=== PATIENT | female | born 2000 | race Caucasian/White ===

== ENCOUNTER 2020-08-28 09:56 | Emergency (ER) | payer BC ==
[2020-08-28 10:03] VITALS: TEMP 98.5
[2020-08-28] MEDS ORDERED: PRENATAL TABLET PO (10:06)
[2020-08-28] MEDS ORDERED: CALCIUM CARBON650 M2 (10:07)
[2020-08-28 10:44] LABS: ALBUMIN 4.5 gm/dL (3.5-5.0); BILIRUBIN,TOTAL 0.6 mg/dL (0.0-1.0); CALCIUM 9.4 mg/dL (8.4-10.2); CREATININE, serum 0.57 (0.52-1.25); POTASSIUM 4.2 mmol/L (3.4-5.0); TOTAL PROTEIN 7.5 gm/dL (6.4-8.2)
[2020-08-28 10:51] LABS: BASO % 0.1 % (0.0-2.0); EOS # 0.1 (0.0-0.7); GRAN # 7.2 (1.4-6.5); HEMOGLOBIN 12.8 g/dl (12.5-16.0); LYMPH # 1.4 (1.2-3.4); LYMPH % 15.5 % (20.0-51.0); MEAN CELL VOLUME 85 fl (80.0-100.0); MEAN CORPUSCULAR HEMOGLOBIN 29 pg (27.0-31.0); MEAN CORPUSCULAR HGB CONC 35 g/dl (33.0-37.0); MONO # 0.5 (0.1-0.6); MONO % 5.1 % (1.7-9.3); PLATELET COUNT 255 K/mm3 (130-400); RED BLOOD COUNT 4.37 M/mm3 (4.10-5.30); REDCELL DISTRIBUTION WIDTH-CV 12.4 % (11.5-14.5)
[2020-08-28 10:59] LABS: PROLACTIN 32.7 ng/mL (3.0-18.6)
[2020-08-28 11:08] LABS: COLLECTION METHOD CLEAN CATCH
[2020-08-28 11:27] LABS: MUCOUS Present /lpf; PH 6 (5-8); URINE APPEARANCE Cloudy; URINE BACTERIA Rare /hpf; URINE BILIRUBIN Negative (NEGATIVE); URINE BLOOD 1+ (NEGATIVE); URINE COLOR Yellow; URINE GLUCOSE Negative (NEGATIVE); URINE KETONE 1+ (NEGATIVE); URINE LEUKOCYTE ESTERASE 3+ (NEGATIVE); URINE NITRATE Negative (NEGATIVE); URINE PROTEIN(semi-quant) Negative (NEGATIVE); URINE UROBILINOGEN Negative (NEGATIVE)
[2020-08-28] MEDS ORDERED: MACROBID 1100 MG/CAP PO (13:22)
[2020-08-28] MEDS ORDERED: KEPPRA 500MG500 MG PO (13:22)
[2020-08-28 13:41] VITALS: BP 104/70; PULSE 60
== END 2020-08-28 13:40 | disposition home or self-care (01) ==
LOC: COL.ER 09:56
PROVIDERS: Emergency Medicine
DX: O99.351 Diseases of the nervous system complicating pregnancy, first trimester (principal); O23.41 Unspecified infection of urinary tract in pregnancy, first trimester; R56.9 Unspecified convulsions; Z3A.11 11 weeks gestation of pregnancy
CPT/HCPCS: J7030

== ENCOUNTER 2021-02-19 17:29 | Outpatient (CLI) | payer BC ==
[~2021-02-19] VITALS: Ht 165.1 cm; Wt 98.2 kg
[~2021-02-19 17:29] MED LIST: CALCIUM CARBON650 M2; KEPPRA 500MG500 MG PO; MACROBID 1100 MG/CAP PO; PRENATAL TABLET PO
--- NOTE | 2021-02-19 17:45 | NUR ---
Pt arrives on unit ambulatory with support person. States contractions since 1100 with absent seizures during ctx that last 1-2 minutes. Pt states not feeling baby move as much. Denies vaginal bleeding and leaking of fluid. Mild headache present. Keppra 1000mg BID taken this am. EFM and toco applied. BP elevated. SVE per this RN /-3. Dr. Black notified. Orders for CBC, CMP, 24 hour CrCL urine. Admission assessment completed. Pt updated on POC. No questions or concerns at this time.
[2021-02-19 17:50] VITALS: BP 155/105; PULSE 96
[2021-02-19] MEDS ORDERED: KEPPRA1000 MG PO (17:59)
[2021-02-19 18:00] VITALS: BP 162/111; PULSE 100; TEMP 98.1
[2021-02-19 18:15] VITALS: BP 138/94; PULSE 94
--- NOTE | 2021-02-19 18:20 | NUR ---
Report to Hussein Recio RN who assumes care of patient at this time.
[2021-02-19 18:23] LABS: BASO % 0.1 % (0.0-2.0); EOS % 0.4 % (0-4.0); GRAN # 7.3 (1.4-6.5); HEMOGLOBIN 11.7 g/dl (12.5-16.0); LYMPH # 1.7 (1.2-3.4); LYMPH % 17.6 % (20.0-51.0); MEAN CELL VOLUME 88 fl (80.0-100.0); MEAN CORPUSCULAR HEMOGLOBIN 29 pg (27.0-31.0); MEAN CORPUSCULAR HGB CONC 33 g/dl (33.0-37.0); MEAN PLATELET VOLUME 10.9 fl (7.4-10.4); MONO # 0.6 (0.1-0.6); MONO % 6.4 % (1.7-9.3); PLATELET COUNT 231 K/mm3 (130-400); RED BLOOD COUNT 4.08 M/mm3 (4.10-5.30); REDCELL DISTRIBUTION WIDTH-CV 13.3 % (11.5-14.5)
[2021-02-19 18:27] LABS: ALANINE AMINOTRANSFERASE 9 U/L (4-34); ALBUMIN 3.4 gm/dL (3.5-5.0); ALKALINE PHOSPHATASE 120 U/L (50-136); ANION GAP 7 mmol/L (7-16); AST,SGOT 16 U/L (15-37); BILIRUBIN,TOTAL < 0.1 mg/dL (0.0-1.0); BLOOD UREA NITROGEN 4 mg/dL (7-17); CALCIUM 9.1 mg/dL (8.4-10.2); CARBON DIOXIDE 18 mmol/L (22-30); CHLORIDE 110 mmol/L (98-107); CREATININE, serum 0.43 (0.52-1.25); GLUCOSE 78 mg/dL (74-106); POTASSIUM 4.2 mmol/L (3.4-5.0); SODIUM 135 mmol/L (137-145); TOTAL PROTEIN 6.5 gm/dL (6.4-8.2)
[2021-02-19 18:30] LABS: HEMATOCRIT 35.7 % (37.0-47.0)
[2021-02-19 18:43] VITALS: BP 138/87; PULSE 86
== END 2021-02-19 19:00 | disposition home or self-care (01) ==
LOC: LDRO 17:29
PROVIDERS: Obstetrics & Gynecology
DX: O62.9 Abnormality of forces of labor, unspecified (principal); O99.891 Other specified diseases and conditions complicating pregnancy; R56.9 Unspecified convulsions; Z3A.36 36 weeks gestation of pregnancy

== ENCOUNTER 2021-03-05 14:27 | Outpatient (CLI) | payer BC ==
[2021-03-05] VITALS (8 sets, daily range): BP systolic 136–168; BP diastolic 63–114; PULSE 64–93; TEMP 98.5
[~2021-03-05] VITALS: Ht 165.1 cm; Wt 101.4 kg
[~2021-03-05 14:27] MED LIST changes: +KEPPRA1000 MG PO
--- NOTE | 2021-03-05 14:40 | NUR ---
Pt arrived on unit ambulatory and with complaints of possible ROM. Pt reports occasional cramping but no contractions and reports decreased movements. EFM and toco monitors started. Vitals done with elevated pressures. SVE done .
[2021-03-05 15:33] LABS: BASO % 0.1 % (0.0-2.0); EOS % 0.3 % (0-4.0); GRAN # 7.5 (1.4-6.5); HEMOGLOBIN 12.5 g/dl (12.5-16.0); LYMPH # 1.8 (1.2-3.4); LYMPH % 18.1 % (20.0-51.0); MEAN CELL VOLUME 84 fl (80.0-100.0); MEAN CORPUSCULAR HEMOGLOBIN 29 pg (27.0-31.0); MEAN CORPUSCULAR HGB CONC 34 g/dl (33.0-37.0); MEAN PLATELET VOLUME 11.4 fl (7.4-10.4); MONO # 0.5 (0.1-0.6); MONO % 5.1 % (1.7-9.3); PLATELET COUNT 237 K/mm3 (130-400); RED BLOOD COUNT 4.38 M/mm3 (4.10-5.30); REDCELL DISTRIBUTION WIDTH-CV 13.1 % (11.5-14.5)
[2021-03-05 15:37] LABS: HEMATOCRIT 36.8 % (37.0-47.0)
[2021-03-05 15:44] LABS: ALBUMIN 2.9 gm/dL (3.5-5.0); BILIRUBIN,TOTAL 0.2 mg/dL (0.0-1.0); CALCIUM 8.3 mg/dL (8.4-10.2); CREATININE, serum 0.75 (0.52-1.25); POTASSIUM 4.3 mmol/L (3.4-5.0); TOTAL PROTEIN 5.8 gm/dL (6.4-8.2)
== END 2021-03-05 16:00 | disposition home or self-care (01) ==
LOC: LDRO 14:27
PROVIDERS: Obstetrics & Gynecology
DX: O26.893 Other specified pregnancy related conditions, third trimester (principal); R25.2 Cramp and spasm; Z3A.38 38 weeks gestation of pregnancy

== ENCOUNTER 2021-03-09 18:08 | Inpatient (IN) | payer BC ==
[~2021-03-09] VITALS: Ht 165.1 cm; Wt 101.4 kg
[2021-03-09] VITALS (22 sets, daily range): BP systolic 135–191; BP diastolic 76–116; PULSE 73–139; TEMP 97.4–98.3
--- NOTE | 2021-03-09 18:15 | NUR ---
pt to unit ambulatory with spouse with complaints of migraine, dizziness, blurred vision, pt is Covid +, oriented to LR 1, vs obtained, EFMx2 applied.
[2021-03-09 19:50] LABS: COLLECTION METHOD CLEAN CATCH
[2021-03-09 19:59] LABS: BASO % 0.1 % (0.0-2.0); EOS % 0.3 % (0-4.0); GRAN # 8.4 (1.4-6.5); GRAN % 76.6 % (42.2-75.2); HEMOGLOBIN 12.7 g/dl (12.5-16.0); LYMPH # 1.9 (1.2-3.4); LYMPH % 17.4 % (20.0-51.0); MEAN CELL VOLUME 84 fl (80.0-100.0); MEAN CORPUSCULAR HEMOGLOBIN 29 pg (27.0-31.0); MEAN CORPUSCULAR HGB CONC 34 g/dl (33.0-37.0); MEAN PLATELET VOLUME 11.7 fl (7.4-10.4); MONO # 0.6 (0.1-0.6); MONO % 5.1 % (1.7-9.3); PLATELET COUNT 228 K/mm3 (130-400); RED BLOOD COUNT 4.39 M/mm3 (4.10-5.30); REDCELL DISTRIBUTION WIDTH-CV 12.6 % (11.5-14.5)
[2021-03-09 20:04] LABS: ALBUMIN 2.9 gm/dL (3.5-5.0); BILIRUBIN,TOTAL 0.2 mg/dL (0.0-1.0); CALCIUM 8.6 mg/dL (8.4-10.2); CREATININE, serum 0.58 (0.52-1.25); POTASSIUM 4.4 mmol/L (3.4-5.0); TOTAL PROTEIN 5.9 gm/dL (6.4-8.2)
[2021-03-09 20:06] LABS: PH 7 (5-8); SQUAMOUS EPITHELIAL 20-50 /hpf; URINE APPEARANCE Cloudy; URINE BACTERIA Rare /hpf; URINE BILIRUBIN Negative (NEGATIVE); URINE BLOOD Negative (NEGATIVE); URINE COLOR Yellow; URINE GLUCOSE Negative (NEGATIVE); URINE KETONE Negative (NEGATIVE); URINE LEUKOCYTE ESTERASE 2+ (NEGATIVE); URINE NITRATE Negative (NEGATIVE); URINE PROTEIN(semi-quant) 3+ (NEGATIVE); URINE UROBILINOGEN Negative (NEGATIVE); URINE WBC >50 /hpf
--- NOTE | 2021-03-09 21:17 | NUR ---
2012- pt up to bathroom. 2016- EFMx2 applied, difficulty tracing FHT at this time. This nurse remains at bedside adjusting US. 2024- BP 135/92. 2028- This nurse remains at bedside adjusting US due to continued difficulty tracing FHTs. Dr Salgado calls unit for update. Reviewed lab results in room, notified of improved BPs, Dr. Salgado will come to unit to evaluate pt. 2039- This nurse remains at bedside adjusting US due to continued difficulty tracing FHTs. Pt resting but suddenly states, "I don't know what's happening with my leg." Pt's left leg abruptly straightens and pt begins having a seizure. HOB flat, turned to her side, call light pulled. Hussein Newsome, VIDAL and VIDAL Wick in room to assist. Pt did not vomit but spitting up saliva. Mouth suctioned. Seizure lasting approximately 1 minute. O2 at 10L applied via non rebreather. Dr. Salgado notifed by Shamika during seizure activity. Dr. Salgado already in route to hospital, gives orders to start 4gm loading dose of magnesium sulfate, then give continuous infusion of 2gm per hour. 2045- 4gm loading dose of magnesium started. 2nd IV site started in right hand with NS running at 75ml/hr. 2046- Dr. Salgado in room to evaluate pt. Pt oriented to date and location following seizure. Dr. Salgado discusses with pt C/S risks and benefits, pt agrees to C/S at this time. 2054- BP of 145/94 2099- Dr. Salgado remains on unit, notified that pt states she is feeling tightness in her chest and abdomen. Dr. Salgado to room. Pt states she can't breath, O2 sat currently 99% on O2 at 10L. Pt HR ranging in the 140-160bpm. This nurse remains in room with pt. 2104- 2gm/hr continuous magnesium infusion started. 2109- Pt states she feels like she is going to have another seizure, Dr Salgado to room immediately, pt begins to seize. HOB down, pt to side. Seizure lasting approxiately 1 minute. 2111- Kadeem Pimentel CRNA in room, administers 15mg of labetolol IV. 2113- Dr. Salgado adjusts US, FHTs tracing in the 110-120's. 2116- [place] DC'd at this time, pt to OR for C/S.
--- NOTE | 2021-03-09 22:10 | NUR ---
PT TO RECOVER IN LR 1 DUE TO COVID +. PT IS DROWSY FROM SEDATION BUT RESPONDS TO VERBAL STIMULATION. Kadeem PENNY CRNA IN ROOM AND ADMINISTERED 10MG LABETOLOL IV AT 2215. REPEAT DOSE OF 10MG IV LABETOLOL GIVEN BY THIS NURSE AT 2230 DUE TO BP OF 162/94, Kadeem PENNY CRNA ADMINISTERS 5MG IV HYDRALAZINE AT THIS TIME WELL. DR. INGRAM IN ROOM TO EVALUATE PT. NOTIFIES SPOUSE THAT PT MAY BE DROWSY/SLEEPY DUE TO MEDICATIONS GIVEN DURING SURGERY AND ALSO DUE TO SEIZURES, SPOUSE VERBALIZED UNDERSTANDING. DR. INGRAM GIVES PARAMETERS OF 160/100 FOR BP, IF BP EXCEEDS PARAMETERS GIVE 5MG IV HYDRALAZINE AND CALL WITH UPDATE. COLLECT CMP, CBC, AND MAGNESIUM LEVEL AT 0500. PT TO START 40MG LOVENOX 03/10/[address] INGRAM.
[2021-03-10] VITALS (61 sets, daily range): BP systolic 109–173; BP diastolic 68–100; PULSE 80–113; TEMP 97.4–98.7
[2021-03-10 06:31] LABS: ALBUMIN 2.7 gm/dL (3.5-5.0); BILIRUBIN,TOTAL 0.2 mg/dL (0.0-1.0); CALCIUM 7.4 mg/dL (8.4-10.2); CREATININE, serum 0.6 (0.52-1.25); POTASSIUM 4.4 mmol/L (3.4-5.0); TOTAL PROTEIN 5.4 gm/dL (6.4-8.2)
[2021-03-10 06:34] LABS: MAGNESIUM 5.5 mg/dL (1.6-2.3)
[2021-03-10 07:01] LABS: BASO % 0.1 % (0.0-2.0); GRAN # 16.7 (1.4-6.5); GRAN % 88.8 % (42.2-75.2); HEMOGLOBIN 11.6 g/dl (12.5-16.0); LYMPH # 1.2 (1.2-3.4); LYMPH % 6.6 % (20.0-51.0); MEAN CELL VOLUME 87 fl (80.0-100.0); MEAN CORPUSCULAR HEMOGLOBIN 29 pg (27.0-31.0); MEAN CORPUSCULAR HGB CONC 33 g/dl (33.0-37.0); MEAN PLATELET VOLUME 11.6 fl (7.4-10.4); MONO # 0.7 (0.1-0.6); MONO % 3.9 % (1.7-9.3); PLATELET COUNT 250 K/mm3 (130-400); RED BLOOD COUNT 4.02 M/mm3 (4.10-5.30); REDCELL DISTRIBUTION WIDTH-CV 12.9 % (11.5-14.5)
[2021-03-10 07:02] LABS: HEMATOCRIT 34.9 % (37.0-47.0)
--- NOTE | 2021-03-10 09:45 | NUR ---
O2 Sats are as follows: 0945- 98% 1015- 97% 1045- 95% 1115- 98% 1145- 98% 1215- 96% 1245- 96% 1315- 97% 1345- 97% 1415- 98% 1445- 97% 1515- 97% 1545- 95% 1615- 97% 1645- 97% 1715- 97% 1745- 96% 1815- 94%
--- NOTE | 2021-03-10 16:30 | NUR ---
Pt reports an episode of feeling "dizzy, lightheaded and out of it" similar to her previous seizure activity. Episode was not witnessed by this RN but was reported to Dr. Salgado. See [facility] notification for details.
--- NOTE | 2021-03-10 20:19 | NUR ---
DR. INGRAM ON UNIT. NOTIFIED OF CONTINUED ELEVATED BP'S FOLLOWING ADMINISTRATION OF 20MG IV LABETOLOL. GIVE 30MG PROCARDIA XL PO NOW PER DR. INGRAM.
--- NOTE | 2021-03-10 20:37 | NUR ---
DR. INGRAM REMAINS ON UNIT, ORDERS 5MG IV HYDRALAZINE TO BE GIVEN AT THIS TIME DUE TO BP OF 171/88.
--- NOTE | 2021-03-10 21:30 | NUR ---
DR. INGRAM REMAINS ON UNIT, NOTIFIED OF CONTINUED BORDERLINE SEVERE BP'S IN THE 150/80'S OVER THE LAST HOUR. DR. INGRAM ORDERS 20MG IV LABETOLOL TO BE GIVEN NOW AND GIVE 2ND DOSE OF 30MG PROCARDIA XL IN AN HOUR. CONTINUE TO CLOSELY MONITOR BP'S EVERY 30 MINUTES. CALL IF BP'S DON'T RESPOND TO MEDICATIONS.
[2021-03-11] VITALS (32 sets, daily range): BP systolic 109–144; BP diastolic 60–87; PULSE 71–114; TEMP 98.2
--- NOTE | 2021-03-11 04:45 | NUR ---
PT UP TO BATHROOM. TOLERATED WELL. VIET DC'D BY THIS NURSE, 2100MLS YELLOW CLEAR URINE OUT. PERICARE PROVIDED. PT TO CHAIR WHILE LINENS CHANGED. RETURN TO BED, BP CUFF SET TO EVERY 30 MINUTES, PULSE OX IN PLACE.
[2021-03-11 06:31] LABS: HEMOGLOBIN 10.3 g/dl (12.5-16.0); MEAN CELL VOLUME 87 fl (80.0-100.0); MEAN CORPUSCULAR HEMOGLOBIN 29 pg (27.0-31.0); MEAN CORPUSCULAR HGB CONC 33 g/dl (33.0-37.0); MEAN PLATELET VOLUME 10.6 fl (7.4-10.4); PLATELET COUNT 231 K/mm3 (130-400); RED BLOOD COUNT 3.58 M/mm3 (4.10-5.30); REDCELL DISTRIBUTION WIDTH-CV 13.2 % (11.5-14.5)
[2021-03-11 06:41] LABS: HEMATOCRIT 31.1 % (37.0-47.0)
[2021-03-11 06:44] LABS: ALBUMIN 2.6 gm/dL (3.5-5.0); BILIRUBIN,TOTAL 0.2 mg/dL (0.0-1.0); CALCIUM 7.1 mg/dL (8.4-10.2); CREATININE, serum 0.68 (0.52-1.25); MAGNESIUM 3.1 mg/dL (1.6-2.3); POTASSIUM 3.8 mmol/L (3.4-5.0); TOTAL PROTEIN 5.2 gm/dL (6.4-8.2)
--- NOTE | 2021-03-11 14:20 | NUR ---
PERCOCET 2 TABS GIVEN AT 1420 MOTRIN 800MG TAB GIVEN AT 1420
[2021-03-12 07:00] VITALS: BP 165/87
[2021-03-12 07:10] VITALS: BP 160/97
[2021-03-12 08:00] VITALS: BP 141/84; PULSE 70; TEMP 98.4
[2021-03-12] MEDS ORDERED: PROCARDIA XL 6060 MG PO (08:45)
[2021-03-12] MEDS ORDERED: PERCOCET 325 MG1 TA2 PO (08:46)
[2021-03-12] MEDS ORDERED: MOTRIN 800800 MG/TAB PO (08:46)
--- NOTE | 2021-03-12 10:15 | NUR ---
Social service phone consult with pt. No concerns to SS.
--- NOTE | 2021-03-16 07:51 | NUR ---
Late entry: On 03/12/2021 medical social worker spoke with patient to assess needs. Patient states she lives with her spouse in an apartment and her sister lives a couple of apartments away from her. Patient does not drive due to seizure disorder, however, patient states her sister provides for all of the transportation needs. Patient states her mother in [place] and her sister are her support system. Patient and spouse are employed and patient has 8-10 weeks off and spouse has 6 weeks off work. Patient states she has all needed supplies, including a basinet and crib. Patient denies any unmet needs or concerns discharging home. Patient will discharge home today. Worker collaborated with patient's nurse regarding the above information.
== END 2021-03-12 12:45 | disposition home or self-care (01) | DRG 786 ==
LOC: LDRO 18:08 → LDR 19:00 → OB 19:00 → LDRO 19:33 → LDR 19:33 → OB 03-12 12:45
PROVIDERS: ADMIT Student in an Organized Health Care Education/Training Program
PROC: 10D00Z1 Extraction of Products of Conception, Low, Open Approach (ICD-10-PCS; principal; 2021-03-09)
DX: O14.14 Severe pre-eclampsia complicating childbirth (principal); U07.1 COVID-19; O98.52 Other viral diseases complicating childbirth; O99.354 Diseases of the nervous system complicating childbirth; O74.5 Spinal and epidural anesthesia-induced headache during labor and delivery; O99.214 Obesity complicating childbirth; G40.909 Epilepsy, unspecified, not intractable, without status epilepticus; E66.9 Obesity, unspecified; Z3A.38 38 weeks gestation of pregnancy; Z37.0 Single live birth; Z90.49 Acquired absence of other specified parts of digestive tract
CPT/HCPCS: OP; J0330; J0360; J0690; J1650; J2250; J2370; J2405; J2590; J2704; J3010; J3475; J7030

== ENCOUNTER 2021-03-27 02:31 | Emergency (ER) | payer BC ==
[~2021-03-27] VITALS: Ht 165.1 cm; Wt 87.3 kg
[~2021-03-27 02:31] MED LIST changes: +MOTRIN 800800 MG/TAB PO; +PERCOCET 325 MG1 TA2 PO; +PROCARDIA XL 6060 MG PO
[2021-03-27 02:36] VITALS: TEMP 98
[2021-03-27 03:10] LABS: COLLECTION METHOD CLEAN CATCH
[2021-03-27 03:14] LABS: PH 6 (5-8); SQUAMOUS EPITHELIAL 0-2 /hpf; URINE APPEARANCE Hazy; URINE BACTERIA None Seen /hpf; URINE BILIRUBIN Negative (NEGATIVE); URINE BLOOD 3+ (NEGATIVE); URINE COLOR Straw; URINE GLUCOSE Negative (NEGATIVE); URINE KETONE Negative (NEGATIVE); URINE LEUKOCYTE ESTERASE Trace (NEGATIVE); URINE NITRATE Negative (NEGATIVE); URINE PROTEIN(semi-quant) Negative (NEGATIVE); URINE UROBILINOGEN Negative (NEGATIVE)
[2021-03-27 03:21] LABS: BASO % 0.4 % (0.0-2.0); EOS # 0.1 (0.0-0.7); EOS % 1.1 % (0-4.0); GRAN # 5.3 (1.4-6.5); GRAN % 66.2 % (42.2-75.2); HEMATOCRIT 40.5 % (37.0-47.0); HEMOGLOBIN 13.4 g/dl (12.5-16.0); LYMPH # 2.2 (1.2-3.4); LYMPH % 27.3 % (20.0-51.0); MEAN CELL VOLUME 86 fl (80.0-100.0); MEAN CORPUSCULAR HEMOGLOBIN 28 pg (27.0-31.0); MEAN CORPUSCULAR HGB CONC 33 g/dl (33.0-37.0); MEAN PLATELET VOLUME 9.7 fl (7.4-10.4); MONO # 0.4 (0.1-0.6); MONO % 4.9 % (1.7-9.3); PLATELET COUNT 332 K/mm3 (130-400); RED BLOOD COUNT 4.72 M/mm3 (4.10-5.30); REDCELL DISTRIBUTION WIDTH-CV 12.1 % (11.5-14.5)
[2021-03-27 03:37] LABS: ALBUMIN 4.7 gm/dL (3.5-5.0); BILIRUBIN,TOTAL 0.3 mg/dL (0.0-1.0); CREATININE, serum 0.64 (0.52-1.25); POTASSIUM 4.3 mmol/L (3.4-5.0); TOTAL PROTEIN 8.5 gm/dL (6.4-8.2)
[2021-03-27 05:02] VITALS: BP 144/111; PULSE 90
== END 2021-03-27 05:02 | disposition home or self-care (01) ==
LOC: COL.ER 02:31
PROVIDERS: Emergency Medicine
DX: F41.9 Anxiety disorder, unspecified (principal); R03.0 Elevated blood-pressure reading, without diagnosis of hypertension; G40.909 Epilepsy, unspecified, not intractable, without status epilepticus; Z79.899 Other long term (current) drug therapy

== ENCOUNTER → 2021-07-04 | Outpatient (CLI) | payer BC | LOC: COL.CARD 06-29 13:00 | DX: Z01.810 Encounter for preprocedural cardiovascular examination (principal); Z3A.32 32 weeks gestation of pregnancy; G40.209 Localization-related (focal) (partial) symptomatic epilepsy and epileptic syndromes with complex partial seizures, not intractable, without status epilepticus ==

== ENCOUNTER 2021-07-31 12:20 | Emergency (ER) | payer BC | END 2021-07-31 13:02 | disposition left against medical advice (07) | LOC: COL.ER 12:20 | DX: I51.9 Heart disease, unspecified (principal) ==

== ENCOUNTER → 2021-09-03 | Outpatient (CLI) | payer BC | LOC: COL.CARD 13:00 | DX: G40.209 Localization-related (focal) (partial) symptomatic epilepsy and epileptic syndromes with complex partial seizures, not intractable, without status epilepticus (principal); Z3A.32 32 weeks gestation of pregnancy ==

== ENCOUNTER 2022-06-21 21:20 | Emergency (ER) | payer OTHER ==
[~2022-06-21] VITALS: Ht 165.1 cm; Wt 85.5 kg
[2022-06-21 21:31] VITALS: TEMP 97.4
[2022-06-21 21:46] LABS: COLLECTION METHOD CLEAN CATCH
[2022-06-21 21:58] LABS: MUCOUS Present (NOT PRESENT); URINE BACTERIA None Seen /hpf (NONE SEEN)
[2022-06-21 21:59] LABS: PH 5.5 (5.0-8.5); URINE APPEARANCE Clear (CLEAR/HAZY); URINE BLOOD 2+ (NEGATIVE); URINE COLOR Yellow (YELLOW); URINE GLUCOSE Negative (NEGATIVE); URINE KETONE Negative (NEGATIVE); URINE NITRATE Negative (NEGATIVE); URINE PROTEIN(semi-quant) Negative (NEGATIVE); URINE UROBILINOGEN 0.2 E.U/dL (0.2-1.0)
[2022-06-21 22:33] LABS: HEMATOCRIT 40.6 % (37.0-47.0); HEMOGLOBIN 13.5 g/dl (12.5-16.0); MEAN CELL VOLUME 86 fl (80.0-100.0); MEAN CORPUSCULAR HEMOGLOBIN 29 pg (27-31); MEAN CORPUSCULAR HGB CONC 33 g/dl (33.0-37.0); MEAN PLATELET VOLUME 9.6 fl (7.4-10.4); PLATELET COUNT 311 K/mm3 (130-400); RED BLOOD COUNT 4.73 M/mm3 (4.10-5.30); REDCELL DISTRIBUTION WIDTH-CV 12.8 % (11.5-14.5)
[2022-06-21 22:39] LABS: ALBUMIN 4.1 gm/dL (3.5-5.0); BILIRUBIN,TOTAL 0.2 mg/dL (0.2-1.2); CALCIUM 8.9 mg/dL (8.4-10.2); CREATININE, serum 0.71 mg/dL (0.57-1.11); POTASSIUM 4.1 mmol/L (3.5-4.5); TOTAL PROTEIN 7.2 gm/dL (6.2-8.1)
[2022-06-21 23:08] LABS: PLATELET ESTIMATE NORMAL (NORMAL)
[2022-06-21] MEDS ORDERED: CEFTIN500 MG PO (23:24)
[2022-06-21 23:26] VITALS: BP 124/88; PULSE 97
== END 2022-06-21 23:26 | disposition home or self-care (01) ==
LOC: COL.ER 21:20
PROVIDERS: Nurse Practitioner
DX: O23.41 Unspecified infection of urinary tract in pregnancy, first trimester (principal); N39.0 Urinary tract infection, site not specified; O20.9 Hemorrhage in early pregnancy, unspecified; Z28.310 Unvaccinated for COVID-19; Z3A.01 Less than 8 weeks gestation of pregnancy